=== PATIENT | male | born 1960 | race Two or more races ===

== ENCOUNTER 2019-07-25 18:22 | Emergency (ER) | payer OTHER ==
[~2019-07-25] VITALS: Ht 157.5 cm; Wt 59.0 kg
--- OUTSIDE RECORDS SUMMARY | ~2019-07-25 | XMS | Encounter Summary ---
Demographics + + + | Address | [address] | | | [place] [address] | + + + | Home Phone | | + + + | Preferred Language | Unknown | + + + | Marital Status | Single | + + + | Christianity Affiliation | Unknown | + + + | Race | Unknown | + + + | Ethnic Group | Unknown | + + + Author + + + | Author | [facility] | | | and [place] | + + + | Organization | [facility] | | | and [place] | + + + | Address | Unknown | + + + | Phone | Unavailable | + + + Support + + +---------+ + | Name | Relationship | Address | Phone | + + +---------+ + | Mayur Walker | ECON | Unknown | | + + +---------+ + Care Team Providers + +------+ + | Care Broom Worker Name | Role | Phone | + +------+ + | Lore Park PA-C | PCP | | + +------+ + Reason for Referral Diagnostic/Screening (Routine) +--------+--------+ + + + + | Status | Reason | Specialty | Diagnoses / | Referred By | Referred To | | | | | Procedures | Contact | Contact | +--------+--------+ + + + + | Closed | | Radiology | Diagnoses | | [facility] | | | | | Chronic | [place], | Ultrasound | | | | | hepatitis C | [place], | [address] | | | | | without | [facility] SPECIALIST [address] | [place], | | | | | hepatic coma | [address] [place] | [place] | | | | | (HCC) | [address] [place] | [address] | | | | | Dementia | [place] | Phone: | | | | | associated | [address] | [phone] | | | | | with | Phone: | Fax: | | | | | alcoholism | [phone] | [phone] | | | | | without | Fax: | | | | | | behavioral | [phone] | | | | | | disturbance | | | | | | | ([facility]) | | | | | | | Procedures | | | | | | | US Abdomen | | | | | | | Limited US, | | | | | | | ABDOMEN | | | | | | | LIMITED | | | +--------+--------+ + + + + Reason for Visit +--------+ + | Reason | Comments | +--------+ + | Other | Hep C | +--------+ + Evaluate & Treat (Routine) +--------+--------+ + + + + | Status | Reason | Specialty | Diagnoses / | Referred By | Referred To | | | | | Procedures | Contact | Contact | +--------+--------+ + + + + | Closed | | Gastroenterol | Diagnoses | Park, | Yaakovi, | | | | ogy | Chronic | Lore | Lamberto Moreno MD | | | | | viral | DARY Hardy | [address], | | | | | hepatitis C | [address] | | | | | (HCC) | St | [place], | | | | | Procedures | [place], | [place] [address] | | | | | Office Visit | [place] [address] | Phone: | | | | | | Phone: | [phone] | | | | | | [phone] | Fax: | | | | | | Fax: | [phone] | | | | | | [phone] | | +--------+--------+ + + + + Encounter Details +--------+---------+ + + + | Date | Type | Department | Care Team | Description | +--------+---------+ + + + | 06/05/ | Office | [facility] [place] | [facility], | Chronic hepatitis C | | 2016 | Visit | GASTROENTEROLOGY | [facility] [address] | without hepatic coma | | | | [address] [place] | [place], [address] | (HCC) (Primary Dx); | | | | [address] [place], [place] | [place], [place] | Dementia associated | | | | [address] | [address] | with alcoholism | | | | [phone] | | without behavioral | | | | | | disturbance (HCC) | +--------+---------+ + + + Social History + +-------+ +--------+------+ | Tobacco Use | Types | Packs/Day | Years | Date | | | | | Used | | + +-------+ +--------+------+ | Former Smoker | | | | | + +-------+ +--------+------+ + +---+---+---+ | Smokeless Tobacco: | | | | | Never Used | | | | + +---+---+---+ + + +---------+ + | Alcohol Use | Drinks/Week | oz/Week | Comments | + + +---------+ + | No | | | quit 2005 | + + +---------+ + + + + | Sex Assigned at | Date Recorded | | | | + + + | Not on file | | + + + + + + + | Job Start Date | Occupation | Industry | + + + + | Not on file | Not on file | Not on file | + + + + + + + + | Travel History | Travel Start | Travel End | + + + + + + | No recent travel history available. | + + documented as of this encounter Last Filed Vital Signs + + + + + | Vital Sign | Reading | Time Taken | Comments | + + + + + | Blood Pressure | 128/74 | 06/05/2017 8:56 AM | | | | | PST | | + + + + + | Pulse | 74 | 06/05/2017 8:56 AM | | | | | PST | | + + + + + | Temperature | 36.5 C (97.7 F) | 06/05/2017 8:56 AM | | | | | PST | | + + + + + | Respiratory Rate | 14 | 06/05/2017 8:56 AM | | | | | PST | | + + + + + | Oxygen Saturation | 96% | 06/05/2017 8:56 AM | | | | | PST | | + + + + + | Inhaled Oxygen | - | - | | | Concentration | | | | + + + + + | Weight | 61.2 kg (134 lb 14.7 | 06/05/2017 8:56 AM | | | | oz) | PST | | + + + + + | Height | 158.8 cm (5' 2.5") | 06/05/2017 8:56 AM | | | | | PST | | + + + + + | Body Mass Index | 24.28 | 06/05/2017 8:56 AM | | | | | PST | | + + + + + documented in this encounter Patient Instructions Patient Instructions Shea Pompa ARNP - 06/05/2017 12:27 PM PST Understanding Hepatitis C (HCV) Hepatitis means inflammation of the liver. There are many kinds of hepatitis. Some can be s pread. Others are not. Hepatitis C virus (HCV) can be spread to others. It can lead to lifel shelly liver disease. This includes chronic hepatitis, cirrhosis, liver failure, and liver canc er. Symptoms of hepatitis C Most people notice no problems until they develop liver disease years later. Symptoms inclu de the following: Flulike problems (fatigue, nausea, vomiting, diarrhea, and sore muscles and joints) Tenderness in the upper right abdomen Jaundice (yellowing skin) Swelling in the belly Itching Dark urine How HCV spreads HCV spreads through exposure to an infected person s blood. This is most likely to happen if: You used an infected needle (IV drug needles, tattoos, acupuncture needles, and body pie rcing) You had a needlestick injury in the hospital You shared personal care items such as razors You had sex without a condom with an infected person (a less common cause) You had a blood transfusion several years ago (blood is now screened for HCV) Many people do not know how they were exposed to HCV. Prevent the spread No vaccine can prevent the spread of HCV and hepatitis C. It s up to you to keep others s afe. Do: Cover all skin breaks and sores yourself. If you need help, the person treating you shou ld wear latex gloves. Use condoms during sex. Don t: Don t donate blood, plasma, body organs, other body tissue, or sperm. Don t share needles. Don t share razors, toothbrushes, manicure tools, or other personal items. Date Last Reviewed: 01/28/[id number] [employer]. [address] [place] [address], [place] [id number]. All righ ts reserved. This information is not intended as a substitute for professional medical care. Always follow your healthcare professional's instructions. documented in this encounter Progress Notes Shea Pompa ARNP - 06/05/2017 8:30 AM PSTFormatting of this note might be differe nt from the original. PATIENT NAME: Lewis Galvez : 1960: AGE: 57 y.o. REFERRED BY: Lore Park PRIMARY CARE: Lore Park PA-C CHIEF COMPLAINT: Lewis Galvez is a 57 y.o. male referred by Lore Park for evaluation and rod tment of HCV. HISTORY OF PRESENT ILLNESS: Patient is here today with caregiver. He has a history of alcohol-induced dementia. He wa s hospitalized in inpatient facility for approximately 10 years. He was released to a skilled nursing. When skilled nursing closed, he was placed and independent housing with a regular care gi asmita. He and caregiver both report that he has done well with this arrangement. He is compl iant with all current medications. He was initially diagnosed with HCV over 12 years ago when he was homeless in [place]. Like ly cause of infection of HCV is history of IV drug use. Has never been treated for HCV in the past. He does not think he has had a liver biopsy in the past. Last drank alcohol: 12 years. Last smoked marijuana: 12 years. Last used illegal drugs: about 14 years ago. There are no known risk factors for NAFLD. There is no known personal or family history of autoimmune diseases. Denies ascites, jaundice, hematemesis, peripheral edema, sleep changes, or confusion. 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 Allergic rhinitis 04/21/2012 Overview: Dx name changed by system update 04/20/2017 Chronic hepatitis C virus infection (HCC) 08/21/2008 Overview: Dx name changed by system update 04/20/2017 Essential hypertension, benign 09/23/2008 Lumbago 12/29/2014 Overview: Seen in the emergency room on 12/11/2014 Osteoarthrosis 10/05/2007 Overview: IMO Problem List Replacement - 2017_Regulatory_1 Other and unspecified hyperlipidemia 10/28/2012 Other atopic dermatitis and related conditions 12/08/2011 Past Surgical History: Procedure Laterality Date EYE SURGERY Family History Problem Relation Age of Onset Family history unknown: Yes Social History Social History Marital status: Single Spouse name: N/A Number of children: N/A Years of education: N/A Occupational History Not on file. Social History Main Topics Smoking status: Former Smoker Smokeless tobacco: Never Used Alcohol use No Comment: quit 2004 Drug use: No Comment: quit Sexual activity: Not on file Other Topics Concern Not on file Social History Narrative No narrative on file Review Of Systems: Constitutional:Denies any fevers, chills, or unintentional weight loss. Eyes:Denies using glaucoma eye drops. Denies dry, burning, painful eyes Respiratory:Denies shortness of breath, cough or wheezing. Gastrointestinal:Denies constipation, diarrhea, bloody or black stools, hematemesis, nausea or vomiting, hemorrhoids, heartburn, abdominal pain, or dysphagia Skin: Complains of skin rash. Neurological: Complains of memory difficulties. Denies numbness or tingling, paralysis, mu scle weakness, seizures, or frequent bothersome headaches. ENT: Complains of use of dentures. Denies hearing loss, use of hearing aids, ringing or bu zzing in ears, constantly runny nose, nasal obstruction, hayfever, or hoarseness for greater than one month. Cardiovascular:Denies chest pain, palpitations, or swelling to legs :Denies painful urination, urine incontinence, waking up on average more than once per ni ght to urinate, bloody urine, or impotence Musculoskeletal: Complains of painful back and joints. Denies swollen joints. Psychiatric:Denies depression and anxiety Endocrine:Denies enlarged thyroid Heme/lymph:Denies anemia or enlarged lymph glands. OBJECTIVE: PHYSICAL EXAM General: well developed, well nourished, in no acute distress, no muscle wasting noted Head: normocephalic and atraumatic Eyes: Sclera clear Mouth: MMM Lungs: Clear to auscultate bilaterally and throughout Heart: regular rate and rhythm Abdomen: Soft, non tender, non distended, bowel tones positive times 4 quadrants, negative Neena y's sign, negative rebound tenderness, no guarding, no hepatosplenomegaly palpated. Msk: symmetrical with no deformity, with normal posture and gait, normal strength. Extremities: no clubbing, cyanosis, edema, or deformity noted Neurologic: no focal deficits, cranial nerves II-XII grossly intact, negative for asterixis Skin: intact without lesions or rashes. Negative for spider angioma Psych: alert and cooperative; normal mood and affect; normal attention span and concentration, Abstract on 06/01/2017 Component Date Value Ref Range Status HCV Quantitative Log 05/03/2017 6.6 Final HCV Quantitative 05/03/2017 [id number] Final HCV Genotype 05/03/2017 1a Final PROTEIN (CALC) 05/03/2017 7 Final ALBUMIN 05/03/2017 4.2 g/dL Final BILIRUBIN TOTAL 05/03/2017 0.3 mg/dL Final Bilirubin Direct 05/03/2017 <0.2 0 - 0.3 Final ALK PHOS 05/03/2017 106 40 - 129 U/L Final AST 05/03/2017 20 0 - 40 U/L Final ALT 05/03/2017 23 0 - 41 U/L Final WBC, External 05/03/2017 8.7 3.8 - 11 Final HGB, External 05/03/2017 14.6 13.2 - 17 Final HCT, External 05/03/2017 42.1 39 - 50 Final PLT, External 05/03/2017 282 150 - 400 Final Neutrophils %, External 05/03/2017 74.8 40 - 75 Final Lymphocytes %, External 05/03/2017 17.2 15 - 48 Final Monocytes %, External 05/03/2017 5.8 0 - 12 Final Eosinophils %, External 05/03/2017 0.8 0 - 7 Final Neutrophils, Absolute, External 05/03/2017 6.5 1.9 - 7.4 Final Lymphocytes, Absolute, External 05/03/2017 1.5 1 - 3.9 Final Monocytes, Absolute, External 05/03/2017 0.5 0 - 0.8 Final Eosinophils, Absolute 05/03/2017 0.1* 0.5 Final Basophils, Absolute 05/03/2017 0.1 0 - 0.1 Final RBC, External 05/03/2017 4.57 4.2 - 5.7 Final MCV, External 05/03/2017 92 80 - 100 Final RDW, External 05/03/2017 13.1 11 - 15.5 Final MCH 05/03/2017 31.9 26.0 - 33.0 pg Final MCHC 05/03/2017 34.6 31.0 - 37.0 % Final Basophils % 05/03/2017 1.4 0 - 2 Final FECAL OCC BLD IMMUNO 11/17/2016 Negative Final ASSESSMENT: 1. Chronic hepatitis C without hepatic coma (HCC) Alpha Fetoprotein, Tumor Marker [id number], Total TOREY Screen, Qual CBC with Differential Ceruloplasmin Comprehensive Metabolic Panel Ferritin Hepatitis A IGG.IGM Hepatitis B Core Ab, IgM Hepatitis B Surface Ab Hepatitis B Surface Ag Protime INR Iron and Transferrin HIV 1 and 2 Ab, Reflex Genotype 1A 2. 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 Will order laboratory test to determin e current fibrosis score. This in combination with APRI will help determine a fibrosis scor e to determine if patient would be an appropriate candidate for hepatitis C treatment. Ordered labs to determine if additional liver pathology present. [facility]. Ordered abdominal ultrasound. Will call to help get scheduled once it is approved by [facility]. Ultrasound to be done at [facility] in [place]. Vaccination: If it has not been done, recommend patient is vaccinated for both Hepatitis A and Hepatitis B. Transmission: Discussed following infection control guidelines. Inform tattoo parlors and [facility]alt[facility] providers of HCV infection. Avoid sharing personal items that might have blood on them, such as razors, toothbrushes, and nail clippers.Despite low risk of transmission throu gh routine sexual contact, recommend safe sex practices, especially if multiple sexual partn ers. Substance use/abuse: Patient was educated on the importance of avoiding all alcohol and mar ijuana. Cannot treat HCV unless patient has been sober from alcohol, marijuana, and all othe r illegal drugs. Contraindications to HCV treatment: Absolute contraindications to HCV treatment include: 1. Short life expectancy.severe co morbidities (less than 10 years). 2. Known advanced cirrhosis with clinical decompensation (e.g. Ascites, encephalopathy, va riceal bleeding or SBP) 3. or inability to reliably use control. 4. Severe cardiac disease. Will call with results of labs and ultrasound. If all are unremarkable, we'll then refer t o GI pharmacist for hepatitis C treatment. Patient is to call with any question or concerns. Any fevers, chills, chest pain, SOB or other serious symptoms patient is to call the offic e or go to ER. Cc: Lore Park PA-C This note was dictated using voice recognition software. Please contact me if there are an y questions regarding its content. Electronically signed by MAR Panda at 01/2017 12:27 PM PSTdocumented in this encounter Plan of Treatment + +---------+--------+ + + | Name | Type | Priori | Associated Diagnoses | Order Schedule | | | | ty | | | + +---------+--------+ + + | Alpha Fetoprotein, | Lab | Routin | Chronic hepatitis | Expected: | | Tumor Marker | | e | C without hepatic | 06/05/2017, Expires: | | | | | coma (HCC) | 10/03/2017 | + +---------+--------+ + + | Fgnaq-5-[id number], | Lab | Routin | Chronic hepatitis | Expected: | | Total | | e | C without hepatic | 06/05/2017, Expires: | | | | | coma (HCC) | 10/03/2017 | + +---------+--------+ + + | TOREY Screen, Qual | Lab | Routin | Chronic hepatitis | Expected: | | | | e | C without hepatic | 06/05/2017, Expires: | | | | | coma (HCC) | 09/03/2017 | + +---------+--------+ + + | CBC with | Lab | Routin | Chronic hepatitis | 1 Occurrences | | Differential | | e | C without hepatic | starting 06/05/2017 | | | | | coma (HCC) | until 10/03/2017 | + +---------+--------+ + + | Ceruloplasmin | Lab | Routin | Chronic hepatitis | Expected: | | | | e | C without hepatic | 06/05/2017, Expires: | | | | | coma (HCC) | 10/03/2017 | + +---------+--------+ + + | Comprehensive | Lab | Routin | Chronic hepatitis | Expected: | | Metabolic Panel | | e | C without hepatic | 06/05/2017, Expires: | | | | | coma (HCC) | 10/03/2017 | + +---------+--------+ + + | Ferritin | Lab | Routin | Chronic hepatitis | Expected: | | | | e | C without hepatic | 06/05/2017, Expires: | | | | | coma (HCC) | 10/03/2017 | + +---------+--------+ + + | Hepatitis A IGG.IGM | Lab | Routin | Chronic hepatitis | Expected: | | | | e | C without hepatic | 06/05/2017, Expires: | | | | | coma (HCC) | 10/03/2017 | + +---------+--------+ + + | Hepatitis B Core Ab, | Lab | Routin | Chronic hepatitis | Expected: | | IgM | | e | C without hepatic | 06/05/2017, Expires: | | | | | coma (HCC) | 10/03/2017 | + +---------+--------+ + + | Hepatitis B Surface | Lab | Routin | Chronic hepatitis | Expected: | | Ab | | e | C without hepatic | 06/05/2017, Expires: | | | | | coma (HCC) | 10/03/2017 | + +---------+--------+ + + | Hepatitis B Surface | Lab | Routin | Chronic hepatitis | Expected: | | Ag | | e | C without hepatic | 06/05/2017, Expires: | | | | | coma (HCC) | 10/03/2017 | + +---------+--------+ + + | Protime INR | Lab | Routin | Chronic hepatitis | Expected: | | | | e | C without hepatic | 06/05/2017, Expires: | | | | | coma (HCC) | 10/03/2017 | + +---------+--------+ + + | Iron and Transferrin | Lab | Routin | Chronic hepatitis | Expected: | | | | e | C without hepatic | 06/05/2017, Expires: | | | | | coma (HCC) | 10/03/2017 | + +---------+--------+ + + | HIV 1 and 2 Ab, | Lab | Routin | Chronic hepatitis | 1 Occurrences | | Reflex | | e | C without hepatic | starting 06/05/2017 | | | | | coma (HCC) | until 06/05/2018 | + +---------+--------+ + + | US Abdomen Limited | Imaging | Routin | Chronic hepatitis | Expected: | | | | e | C without hepatic | 06/12/2017, Expires: | | | | | coma (HCC) Dementia | 10/03/2017 | | | | | associated with | | | | | | alcoholism without | | | | | | behavioral | | | | | | disturbance (HCC) | | + +---------+--------+ + + documented as of this encounter Procedures + +--------+ + + + | Procedure Name | Priori | Date/Time | Associated Diagnosis | Comments | | | ty | | | | + +--------+ + + + | IMAGING REPORT - | | 06/14/2017 | | Results for this | | EXTERNAL SCAN | | 12:00 AM | | procedure are in the | | | | PST | | results section. | + +--------+ + + + | LABS - EXTERNAL SCAN | | 06/14/2017 | | Results for this | | | | 12:00 AM | | procedure are in the | | | | PST | | results section. | + +--------+ + + + documented in this encounter Results LABS - EXTERNAL SCAN (06/14/2017 12:00 AM PST) + + + | Narrative | Performed At | + + + | Ordered by an | | | unspecified provider. | | + + + IMAGING REPORT - EXTERNAL SCAN (06/14/2017 12:00 AM PST) + + + | Narrative | Performed At | + + + | Ordered by an | | | unspecified provider. 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
--- OUTSIDE RECORDS SUMMARY | ~2019-07-25 | XMS | Encounter Summary ---
Demographics + + + | Address | [address] | | | [place] [address] | + + + | Home Phone | | + + + | Preferred Language | Unknown | + + + | Marital Status | Single | + + + | Taoist Affiliation | Unknown | + + + | Race | Unknown | + + + | Ethnic Group | Unknown | + + + Author + + + | Author | [facility] | | | and [place] | + + + | Organization | [facility] | | | [...] Team Providers + +------+ + | Care Wafer Cleaner Name | Role | Phone | + +------+ + | Lore Park PA-C | PCP | | + +------+ + Reason for Visit +---------+ + | Reason | Comments | +---------+ + | Results | | +---------+ + Encounter Details +--------+ + + + + | Date | Type | Department | Care Team | Description | +--------+ + + + + | 08/03/ | Telephone | [facility] | [place], | Results | | 2018 | | GASTROENTEROLOGY | [facility] [address] | | | | | [address] [place] | [place], [address] | | | | | [address] [place], [place] | [place], [place] | | | | | [address] | [address] | | | | | [phone] | | | +--------+ + + + + Social History + +-------+ [...] + + documented as of this encounter Plan of Treatment Not on filedocumented as of this encounter Visit Diagnoses Not on filedocumented in this encounter"
--- OUTSIDE RECORDS SUMMARY | ~2019-07-25 | XMS | Encounter Summary ---
Demographics + + + | Address | [address] | | | [place] [address] | + + + | Home Phone | | + + + | Preferred Language | Unknown | + + + | Marital Status | Single | + + + | Catholic Affiliation | Unknown | + + + | Race | Unknown | + + + | Ethnic Group | Unknown | + + + Author + + + | Author | [facility] | | | and [place] | + + + | Organization | [facility] | | | and [...] Team Providers + +------+ + | Care Airplane Engineer Name | Role | Phone | + +------+ + | Lore Park PA-C | PCP | | + +------+ + Reason for Visit Evaluate & Treat (Routine) +--------+--------+ + + + + | Status | Reason | Specialty | Diagnoses / | Referred By | Referred To | | | | | Procedures | Contact | Contact | +--------+--------+ + + + + | Closed | | Infusion | Diagnoses | | Mohl, | | | | Therapy | Chronic | [place], | Micky W, | | | | | hepatitis C | Shea, | PharmD [address] | | | | | without | INSTALLATION SPECIALIST [address] | | | | | hepatic coma | [place], [place] | [place], | | | | | (HCC) | [address] [place] | [place] [address] | | | | | | [place], [place] | Phone: | | | | | | [address] | [phone] | | | | | | Phone: | Fax: | | | | | | [phone] | [phone] | | | | | | Fax: | | | | | | | [phone] | | +--------+--------+ + + + + Encounter Details +--------+ + + + + | Date | Type | Department | Care Team | Description | +--------+ + + + + | 08/08/ | Hospital | [facility] | [facility], | Chronic hepatitis C | | 2018 | Encounter | MED CTR OP INFUSION | MAR Valdivia [address] | without hepatic coma | | | | [address] [place] | [place] [place] [address] | (HCC) | | | | [place], [place] | [place], [place] | | | | | [address] | [address] | | | | | [phone] | | | | | | | Micky Joseph, | | | | | | PharmD [address] | | | | | | ST [place], [place] | | | | | | [address] | | | | | | | | +--------+ + + + [...] + + + | Blood Pressure | 137/73 | 08/08/2017 9:44 AM | | | | | PST | | + + + + + | Pulse | 79 | 08/08/2017 9:44 AM | | | | | PST | | + + + + + | Temperature | 36.5 C (97.7 F) | 08/08/2017 9:44 AM | | | | | PST | | + + + + + | Respiratory Rate | 18 | 08/08/2017 9:44 AM | | | | | PST | | + + + + + | Oxygen Saturation | 97% | 08/08/2017 9:44 AM | | | | | PST | | + + + + + | Inhaled Oxygen | - | - | | | Concentration | | | | + + + + + | Weight | - | - | | + + + + + | Height | - | - | | + + + + + | Body Mass Index | - | - | | + + + + + documented in this encounter Discharge Instructions Instructions Micky Joseph, PharmDarrell - 08/08/2017I will send off prescription for Mavyret 8 weeks of therapy. I will begin working on the prior authorization for the medication and on ce that is approved we can start therapy. If you have any questions please call the clinic at [phone]. Micky Joseph, Dionne 08/08/2017 10:12 AttachmentsThe following attachments cannot be sent through Care Everywhere.Hepatitis C (HC V), Treating (Yoruba)documented in this encounter Medications at Time of Discharge + + + +---------+ + + | Medication | Sig | Dispensed | Refills | Start | End Date | | | | | | Date | | + + + +---------+ + + | acetaminophen | Take 500 mg by mouth | | 0 | 11/23/19 | | | (TYLENOL) 500 mg | every 6 hours as | | | 17 | | | tablet | needed. | | | | | + + + +---------+ + + | chlorpheniramine | Take 4 mg by mouth 2 | | 0 | 11/23/19 | | | (CHLOR-TRIMETON) 4 | times daily. | | | 17 | | | MG tablet | | | | | | + + + +---------+ + + | Cholecalciferol | Take 1 capsule by | | 0 | 11/23/19 | | | (VITAMIN D-3) 5000 | mouth Daily. | | | 17 | | | units CAPS | | | | | | + + + +---------+ + + | cyclobenzaprine | Take 5 mg by mouth | | 0 | | | | (FLEXERIL) 5 MG | Twice daily as | | | | | | tablet | needed for Muscle | | | | | | | spasms. | | | | | + + + +---------+ + + | fluticasone | 1 spray by Nasal | | 0 | 11/18/19 | | | (FLONASE) 50 | route Daily. | | | 17 | | | mcg/nasal spray | | | | | | + + + +---------+ + + | ibuprofen (ADVIL, | Take 1 tablet by | | 0 | 03/27/20 | | | MOTRIN) 200 mg | mouth every 6 hours | | | 17 | | | tablet | as needed. | | | | | + + + +---------+ + + | | Take 1 tablet by | | 0 | 03/05/20 | | | lisinopril-hydrochlo | mouth Daily. | | | 17 | | | rothiazide | | | | | | | (PRINZIDE,ZESTORETIC | | | | | | | ) 10-12.5 MG per | | | | | | | tablet | | | | | | + + + +---------+ + + | miconazole | Apply 1 Application | | 0 | 11/23/19 | | | (MICATIN) 2% powder | topically as needed. | | | 17 | | + + + +---------+ + + | simethicone | Take 80 mg by mouth | | 0 | 11/23/19 | | | (MYLICON) 80 mg | every 6 hours as | | | 17 | | | chewable tablet | needed. | | | | | + + + +---------+ + + documented as of this encounter Progress Notes Micky Joseph, PharmDarrell - 08/08/2017 9:51 AM PST [facility] New Patient Visit: Hepatitis C Provider: Micky Joseph, HardikD Visit Date: 08/08/2017 Patient: Lewis Galvez : 1960 CSN: [id number] Lewis Galvez is a 57 y.o. male who has been [facility] by MAR Panda for Hepatitis C medication treatment. ASSESSMENT Lewis has no prior history of Hepatitis C treatment. Patient genotype is 1a. Lewis's AP RI=0.34 and Ultrasound abdomen showed no definent abnormalities, and his ICD-10 diagnosis co de is B18.2. Lewis does not have a history of depression, anxiety, emotional liability, ir ritability or insomnia. Patient is currently under the care of Shea Pompa. There hav e been no hospital admissions for ascites, hepatic encephalopathy, jaundice, or gastrointest inal bleed. Lewis does not have untreated hepatocellular carcinoma and does not have deco mpensated cirrhosis (Zynhr-Ryooqxkb-Tdte class B or C, typically with ascites, encephalopath y, coagulopathy, or hyperbilirubinemia). Lewis informed me that Hepatitis C most likely occurred 12 years ago due to history of in travenous drug use. This risk is no longer a contributing factor to future contamination wit h the virus. Medications were reviewed for drug interactions. No significant interactions were identifie d. CAGE questionnaire reveals Lewis has no indication of having alcohol problems. Patient has a history of alcohol-induced dementia. He is at his appointment today with his caregiver (Mayur). Lewis verbalizes that he understands what I explained to him about hep atitis C treatment but openly told me that he forgets and needs help remembering things. He requested that when I contact him to call his caregiver so that he can have things explaine d multiple times if needed. His is currently living in a independent housing with regular v isit from his manager critical care and has done well. He reports being compliant with all of his curr ent medications and utilizes a pill box that he sets up to help him remember to take his med ication. Refill history from [facility] data shows consistent filling of his ma intenance medication for last three month. Last drank alcohol: 12 years. Last smoked marijuana: 12 years. Last used illegal drugs: about 14 years ago. Plan Hepatitis C: 1. Initiate treatment with Mavyret 100mg/40mg take three tablets by mouth daily with food f or 8 weeks. Patient prefers to use [facility] specialty pharmacy and an electronic prescription has been sent. Lewis has been advised that we will call him once insurance coverage of th e medication has been confirmed. 2. Exposure of Hepatitis C occurred greater than 6 months ago and does not require retestin g for HCV RNA. 3. Lewis does not have coinfection with HIV. 4. Lewis does not have immunity to Hepatitis A and does not have immunity to Hepatitis B. Education was provided regarding increased risk of accelerated hepatic fibrosis and liver failure with Hepatitis A/B coinfection 5.Lewis is core antibody negative and surface antigen negative for Hepatitis B; therefore further monitoring for hepatitis B infection is unnecessary at this time. 6. Patient does not currently consume alcohol. Risks of further liver toxicity from consumi ng alcohol, even moderate amounts (50 g/day or more), have been discussed and patient agrees to abstain from drinking alcohol during Hepatitis C treatment. 7. Patient is not currently on any hepatotoxic medications. Lewis is agreeable to calling us prior to starting any new prescription or fyjz-dgn-achsqlq medications, herbals, or supp lements. 8. Lewis rarely uses acetaminophen-containing products. Advised abstaining from use of th brandon products and provided with a list of OTC products that contain acetaminophen. 9. Lewis has been counseled to report any medications used for heartburn such as PPIs or H-2 blockers. 10. Lewis has been counseled to avoid NSAIDS and ASA containing products to prevent wors ening of portal HTN and GI bleeding. Disease state and medication education was provided to Lewis including avoiding donation of blood, tissue or semen, never sharing razors, toothbrushes, nail clippers or other hygien e products that could be contaminated with blood to reduce the transmission of Hepatitis C t o other individuals, the low risk of transmitting HCV sexually to their monogamous sex partn er, sharing needles and equipment used to prepare illicit drugs is associated with increased risk or transmitting and kenia HCV, and that transmission of HCV to others in the [facility] is rare. Lewis has been counseled that reinfection with HCV is possible and prevent ion strategies should be used fpc if ongoing risk exists. Lewis has been counseled t hat the risk of transmitting HCV sexually to their partner increases with multiple sex partn ers, sex during menses, those co-infected with HIV, unprotected anal intercourse, use of rec reational drugs during sex, sex with STDs, group sex, blood exposure and shared sex toys. Subjective/Objective Reason for Visit: Initiation of Hepatitis C medication treatment. Hepatitis C was diagnosed prior to referral to our clinic and confirmed with a positive HCV RNA test and positive anti-HCV antibody test. Patient does not have a history of liver bingham splant. No specialty comments available. 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 Allergic rhinitis 04/21/2012 Chronic hepatitis C virus infection 08/21/2008 Essential hypertension, benign 09/23/2008 Lumbago 12/29/2014 Osteoarthrosis 10/05/2007 Other and unspecified hyperlipidemia 10/28/2012 Other atopic dermatitis and related conditions 12/08/2011 Medical co-morbidities: Patient Active Problem List Diagnosis Absolute anemia Alcohol-induced persisting dementia Allergic rhinitis Chronic hepatitis C virus infection Essential hypertension, benign Lumbago Osteoarthrosis Other and unspecified hyperlipidemia Other atopic dermatitis and related conditions A complete verbal review of systems was conducted and patient reports no positive findings. Patient denies dark urine, jaundice, flu-like symptoms, pale stool, nausea, abdominal pain, dyspepsia, fatigue, arthralgia, neuropathy, nephropathy, glomerulonephritis, livedo reticul hakeem, lichen planus, cold agglutinin disease, paresthesia, myalgia, pruritus, sicca syndrome , spider nevi, distended abdominal veins, Fausto's nails, palmar erythema, gynecomastia, jaun pheral edema and ascites. LABORATORY FINDINGS Lab Results Component Value Date ALT 23 05/03/2017 AST 20 05/03/2017 ALKPHOS 106 05/03/2017 BILITOT 0.3 05/03/2017 HCTEX 42.1 05/03/2017 HGBEX 14.6 05/03/2017 PLTEX 282 05/03/2017 CrCl cannot be calculated (No order found.). CrCl cannot be calculated (No order found.). No results found for this or any previous visit. HCV Quantitative Date Value Ref Range Status 05/03/2017 4,224,825 Final Estimated CrCl:~82 ml/min based on AjBW and last Scr. Vaccine history: Immunization History Administered Date(s) Administered HEP A, 3 DOSE (PED/ADOL) 04/08/2008, 12/23/2009, 10/27/2011 HEP B, 3 DOSE (ADULT) 04/08/2008, 05/08/2008, 12/23/2009 INFLUENZA, UNSPECIFIED FORMULATION 06/13/1993, 05/05/2011, 05/18/2015, 05/03/2017 IPV, 4 DOSE (PED/ADULT) 06/29/2009 TDAP, (ADOL/ADULT) 10/28/2012 Vitals: BP 137/73 | Pulse 79 | Temp 36.5 C (97.7 F) (Oral) | Resp 18 | SpO2 97% Medications: Outpatient Medications acetaminophen (TYLENOL) 500 mg tablet Take 500 mg by mouth every 6 hours as needed. chlorpheniramine (CHLOR-TRIMETON) 4 MG tablet Take 4 mg by mouth 2 times daily. Cholecalciferol (VITAMIN D-3) 5000 units CAPS Take 1 capsule by mouth Daily. fluticasone (FLONASE) 50 mcg/nasal spray 1 spray by Nasal route Daily. ibuprofen (ADVIL, MOTRIN) 200 mg tablet Take 1 tablet by mouth every 6 hours as needed. lisinopril-hydrochlorothiazide (PRINZIDE,ZESTORETIC) 10-12.5 MG per tablet Take 1 tablet b y mouth Daily. miconazole (MICATIN) 2% powder Apply 1 Application topically as needed. simethicone (MYLICON) 80 mg chewable tablet Take 80 mg by mouth every 6 hours as needed. I spent 30 minutes face to face with the patient, with over 50% of time spent in education of Lewis's medications, the risks and benefits of proceeding as above, and answering quest ions regarding treatment and outcomes. Micky Joseph PharmD DATE/TIME: 08/08/2017 9:51 documented in this encounter Plan of Treatment Not on filedocumented as of this encounter Visit Diagnoses + + | Diagnosis | + + | Chronic hepatitis C without hepatic coma (HCC) | + + documented in this encounter"
--- OUTSIDE RECORDS SUMMARY | ~2019-07-25 | XMS | Encounter Summary ---
Demographics + + + | Address | [address] | | | [place] [address] | + + + | Home Phone | | + + + | Preferred Language | Unknown | + + + | Marital Status | Single | + + + | Baptist Affiliation | Unknown | + + + | Race | Unknown | + + + | Ethnic Group | Unknown | + + + Author + + + | Author | [facility] | | | and [place] | + + + | Organization | [facility] | | | and [...] Team Providers + +------+ + | Care Interactive Graphic Designer Name | Role | Phone | + +------+ + | Lore Park PA-C | PCP | | + +------+ + Encounter Details +--------+ + + + + | Date | Type | Department | Care Team | Description | +--------+ + + + + | 07/31/ | Documentati | [facility] [place] | [facility], | | | 2018 | on | GASTROENTEROLOGY | MAR Valdivia [address] | | | | | [address] [place] | [place], [place] [address] | | | | | [address] [place], [place] | [place] | | | | | [address] | [id number] | | | | | [phone] | | | +--------+ + + + [...] documented as of this encounter Progress Notes Celine Mary CMA - 07/31/2017 2:00 PM PSTRouted referral to Micky Joseph in pharmacy . documented in thi s encounter Plan of Treatment Not on filedocumented as of this encounter Visit Diagnoses Not on filedocumented in this encounter"
--- OUTSIDE RECORDS SUMMARY | ~2019-07-25 | XMS | Encounter Summary ---
Demographics + + + | Address | [address] | | | [place] [address] | + + + | Home Phone | | + + + | Preferred Language | Unknown | + + + | Marital Status | Single | + + + | Moravian Affiliation | Unknown | + + + | Race | Unknown | + + + | Ethnic Group | Unknown | + + + Author + + + | Author | [facility] | | | and [place] | + + + | Organization | [facility] | | | [...] Team Providers + +------+ + | Care Dyeing Machine Feeder Name | Role | Phone | + +------+ + | Lore Park PA-C | PCP | | + +------+ + Reason for Visit + + + | Reason | Comments | + + + | Medication Prior | Sulma | | Authorization | | + + + Encounter Details +--------+ + + + + | Date | Type | Department | Care Team | Description | +--------+ + + + + | 09/10/ | Telephone | [facility] | [place], | Medication Prior | | 2018 | | MEDICINE [address] | Lore Hardy PA-C | Authorization | | | | Luiz Schneider | [address] | (Mavyret) | | | | [place] [address] | [place], [place] [address] | | | | | [phone] | [phone] | | | | | | | [...]
--- OUTSIDE RECORDS SUMMARY | ~2019-07-25 | XMS | Encounter Summary ---
Demographics + + + | Address | [address] | | | [place] [address] | + + + | Home Phone | | + + + | Preferred Language | Unknown | + + + | Marital Status | Single | + + + | Buddhism Affiliation | Unknown | + + + | Race | Unknown | + + + | Ethnic Group | Unknown | + + + Author + + + | Author | [facility] | | | and [place] | + + + | Organization | [facility] | | [...] Team Providers + +------+ + | Care Promotions Executive Producer Name | Role | Phone | + +------+ + | Lore Park PA-C | PCP | | + +------+ + Reason for Visit + + + | Reason | Comments | + + + | Medication | | | Management | | + + + Encounter Details +--------+ + + + + | Date | Type | Department | Care Team | Description | +--------+ + + + + | 04/10/ | Telephone | [facility] [place] | [place], | Medication | | 2018 | | GASTROENTEROLOGY | SheaMAR ledesma [address] | Management | | | | [address] [place] | [place], [place] [address] | | | | | [address] [place], [place] | [place], [place] | | | | | [address] | [address] | | | | | [phone] | | | +--------+ + + + [...]
--- OUTSIDE RECORDS SUMMARY | ~2019-07-25 | XMS | Encounter Summary ---
Demographics + + + | Address | [address] | | | [place] [address] | + + + | Home Phone | | + + + | Preferred Language | Unknown | + + + | Marital Status | Single | + + + | Zoroastrianism Affiliation | Unknown | + + + | Race | Unknown | + + + | Ethnic Group | Unknown | + + + Author + + + | Author | [facility] | | | and [place] | + + + | Organization | [facility] | | | [...] Team Providers + +------+ + | Care Clothes Drier Assembler Name | Role | Phone | + +------+ + | Lore Park PA-C | PCP | | + +------+ + Encounter Details +--------+ + + + + | Date | Type | Department | Care Team | Description | +--------+ + + + + | 08/14/ | Orders Only | [facility] | Micky Joseph, | Chronic hepatitis C | | 2018 | | [facility] | PharmD [address] | without hepatic coma | | | | [address] [place] | [address] [place], [place] | (HCC) (Primary Dx) | | | | [place] [address] | [address] | | | | | [phone] | | | +--------+ + + + [...] coma (HCC) - Primary | + + documented in this encounter"
--- OUTSIDE RECORDS SUMMARY | ~2019-07-25 | XMS | Encounter Summary ---
Demographics + + + | Address | [address] | | | [place] [address] | + + + | Home Phone | | + + + | Preferred Language | Unknown | + + + | Marital Status | Single | + + + | Christian Affiliation | Unknown | + + + | Race | Unknown | + + + | Ethnic Group | Unknown | + + + Author + + + | Author | [facility] | | | and [place] | + + + | Organization | [facility] | | | and [...] Team Providers + +------+ + | Care Telegraph Office Route Aide Name | Role | Phone | + [...] coma | | | | [address] [place] | [place], [place] | (HCC) (Primary Dx) | | | | [place] [address] | [address] | | | | | [phone] | | | +--------+ + + + [...]
--- OUTSIDE RECORDS SUMMARY | ~2019-07-25 | XMS | Encounter Summary ---
Demographics + + + | Address | [address] | | | [place] [address] | + + + | Home Phone | | + + + | Preferred Language | Unknown | + + + | Marital Status | Single | + + + | Scientologist Affiliation | Unknown | + + + | Race | Unknown | + + + | Ethnic Group | Unknown | + + + Author + + + | Author | [facility] | | | and [place] | + + + | Organization | [facility] | | | [...] Team Providers + +------+ + | Care Front Desk Worker Name | Role | Phone | + +------+ + | Lore Park PA-C | PCP | | + +------+ + Reason for Visit + + + | Reason | Comments | + + + | Referral | Sulma | + + + Encounter Details +--------+ + + + + | Date | Type | Department | Care Team | Description | +--------+ + + + + | 08/14/ | Documentati | [facility] | Yinka armijo O[place], | Referral (Sulma) | | 2018 | on | PHARMACY SPECIALTY | [facility] | | | | | [place] | Tech | | | | | [facility] | | | | | | [place], [place] | | | | | | [address] | | | | | | [phone] | | | +--------+ + + + [...] documented as of this encounter Progress Notes Lewis Claudio [place], Adjunct Instructor - 08/14/2017 1:16 PM PST The patient's insurance requires us to transfer the Mavyret prescription to their contracte d specialty pharmacy: [facility]. We have forwarded the prescription and all documentation we rec eived to this specialty pharmacy. Please contact them at [phone] with any questions. Electronically signed by: Sabra Pacheco [facility] Tech 08/14/2017 13:16 [address] [place] [address] (Toll Free: ) Website d ocumented in this encounter Plan of Treatment Not on filedocumented as of this encounter Visit Diagnoses Not on filedocumented in this encounter"
--- OUTSIDE RECORDS SUMMARY | ~2019-07-25 | XMS | Encounter Summary ---
Demographics + + + | Address | [address] | | | [place] [address] | + + + | Home Phone | | + + + | Preferred Language | Unknown | + + + | Marital Status | Single | + + + | Jewish Affiliation | Unknown | + + + | Race | Unknown | + + + | Ethnic Group | Unknown | + + + Author + + + | Author | [facility] | | | and [place] | + + + | Organization | [facility] | | | [...] Team Providers + +------+ + | Care Product/Industry Consultant Name | Role | Phone | + [...] | [address] [place] | [place], [address] [address] | | | | | [address] [place], [place] | [place], [place] | | | | | [address] | [address] | | | | | [phone] | | | +--------+ + + + [...]
--- OUTSIDE RECORDS SUMMARY | ~2019-07-25 | XMS | Encounter Summary ---
Demographics + + + | Address | [address] | | | [place] [address] | + + + | Home Phone | | + + + | Preferred Language | Unknown | + + + | Marital Status | Single | + + + | Pentecostalism Affiliation | Unknown | + + + | Race | Unknown | + + + | Ethnic Group | Unknown | + + + Author + + + | Author | [facility] | | | and [place] | + + + | Organization | [facility] | | [...] Team Providers + +------+ + | Care Rail Splitter Name | Role | Phone | + [...] | [address] [place] | [place], [place] [address] | | | | | [address] [place], [place] | [place], [place] | | | | | [address] | [address] | | | | | [phone] | | | +--------+ + + + [...]
--- OUTSIDE RECORDS SUMMARY | ~2019-07-25 | XMS | Encounter Summary ---
Demographics + + + | Address | [address] | | | [place] [address] | + + + | Home Phone | | + + + | Preferred Language | Unknown | + + + | Marital Status | Single | + + + | Jainism Affiliation | Unknown | + + + | Race | Unknown | + + + | Ethnic Group | Unknown | + + + Author + + + | Author | [facility] | | | and [place] | + + + | Organization | [facility] | | | [...] Team Providers + +------+ + | Care Crown Blocker Name | Role | Phone | + [...] | | | | | without | DEPUTY SHERIFF GENERALIST [address] | | | | | hepatic coma | [place] | [place], | | | | | (HCC) | [address] [place] | [place] [address] | | | | | | [place], [place] | Phone: | | | | | | [address] | [phone] | | | | | | Phone: | Fax: | | | | | | [phone] | [phone] | | | | | | Fax: | | | | | | | [phone] | | +--------+--------+ + + + + Encounter Details +--------+ + + + + | Date | Type | Department | Care Team | Description | +--------+ + + + + | 08/08/ | Hospital | [facility] | [facility], | Chronic hepatitis C | | 2018 | Encounter | MED CTR OP INFUSION | [facility] [address] | without hepatic coma | | | | [address] [place] | [place] [place] [address] | (HCC) | | | | [place], [place] | [place], [place] | | | | | [address] | [address] | | | | | [phone] | | | | | | | Micky Joseph, | | | | | | PharmD [address] | | | | | | [address] [place], [place] | | | | | | [address] | | | | | | | [...] any questions please call the clinic at [phone]. Micky Joseph, Dionne 08/08/2017 10:12 AttachmentsThe following attachments cannot be sent through Care Everywhere.Hepatitis C (HC V), Treating (Yi)documented in this encounter Medications at Time of [...] 08/08/2017 Patient: Lewis Galvez : 1960 CSN: [id number] Lewis Galvez is a 57 y.o. male who has been referred to the [facility] by MAR Panda [...] and does not have deco mpensated cirrhosis (Bbnbv-Uighegpb-Rdtd class B or C, typically with ascites, [...] housing with regular v isit from his healthcare architect and has done well. He reports being compliant with all of his curr ent medications and utilizes a pill box that he sets up to help him remember to take his med ication. Refill history from [facility] and [employer] data shows consistent filling of his ma intenance medication for last three month. Last drank alcohol: 12 years. Last smoked marijuana: 12 years. Last used illegal drugs: about 14 years ago. Plan Hepatitis C: 1. Initiate treatment with Mavyret 100mg/40mg take three tablets by mouth daily with food f or 8 weeks. Patient prefers to use [facility] specialty pharmacy and an electronic prescription [...] prior to starting any new prescription or gkot-yxg-twzayra medications, herbals, or supp lements. 8. Lewis [...] transmission of HCV to others in the [facility] is rare. Lewis has been counseled that reinfection with HCV is possible and prevent ion strategies should be used custodial if ongoing risk exists. Lewis has been [...]
--- OUTSIDE RECORDS SUMMARY | ~2019-07-25 | XMS | Clinical Summary ---
Demographics + + + | Address | [address] | | | [place] [address] | + + + | Home Phone | | + + + | Preferred Language | Unknown | + + + | Marital Status | Single | + + + | Mosque Affiliation | Unknown | + + + | Race | Unknown | + + + | Ethnic Group | Unknown | + + + Author + + + | Author | [facility] | | | and [place] | + + + | Organization | [facility] | | | [...] Team Providers + +------+ + | Care Devulcanizer Head Name | Role | Phone | + +------+ + | Lore Park PA-C | PCP | | + +------+ + Allergies No Known Allergies Medications + + + +---------+------+------+-------+ | Medication | Sig | Dispensed | Refills | Star | End | Statu | | | | | | t | Date | s | | | | | | Date | | | + + + +---------+------+------+-------+ | acetaminophen | Take 500 mg by mouth | | 0 | 04/2 | | Activ | | (TYLENOL) 500 mg | every 6 hours as | | | 6/20 | | e | | tablet | needed. | | | 17 | | | + + + +---------+------+------+-------+ | chlorpheniramine | Take 4 mg by mouth 2 | | 0 | 04/2 | | Activ | | (CHLOR-TRIMETON) 4 | times daily. | | | 20 | | e | | MG tablet | | | | 17 | | | + + + +---------+------+------+-------+ | Cholecalciferol | Take 1 capsule by | | 0 | 04/2 | | Activ | | (VITAMIN D-3) 5000 | mouth Daily. | | | 6/20 | | e | | units CAPS | | | | 17 | | | + + + +---------+------+------+-------+ | ibuprofen (ADVIL, | Take 1 tablet by | | 0 | 08/2 | | Activ | | MOTRIN) 200 mg | mouth every 6 hours | | | 20 | | e | | tablet | as needed. | | | 17 | | | + + + +---------+------+------+-------+ | fluticasone | 1 spray by Nasal | | 0 | 04/2 | | Activ | | (FLONASE) 50 | route Daily. | | | 20 | | e | | mcg/nasal spray | | | | 17 | | | + + + +---------+------+------+-------+ | | Take 1 tablet by | | 0 | 08/0 | | Activ | | lisinopril-hydrochlo | mouth Daily. | | | 02/15 | | e | | rothiazide | | | | 17 | | | | (PRINZIDE,ZESTORETIC | | | | | | | | ) 10-12.5 MG per | | | | | | | | tablet | | | | | | | + + + +---------+------+------+-------+ | miconazole | Apply 1 Application | | 0 | 04/2 | | Activ | | (MICATIN) 2% powder | topically as needed. | | | 20 | | e | | | | | | 17 | | | + + + +---------+------+------+-------+ | simethicone | Take 80 mg by mouth | | 0 | 04/2 | | Activ | | (MYLICON) 80 mg | every 6 hours as | | | 620 | | e | | chewable tablet | needed. | | | 17 | | | + + + +---------+------+------+-------+ | cyclobenzaprine | Take 5 mg by mouth | | 0 | | | Activ | | (FLEXERIL) 5 MG | Twice daily as | | | | | e | | tablet | needed for Muscle | | | | | | | | spasms. | | | | | | + + + +---------+------+------+-------+ Active Problems + + + | Problem | Noted Date | + + + | Absolute anemia | 05/03/2017 | + + + | Lumbago | 12/29/2014 | + + + + + | Overview: Overview: | | Seen in the emergency room on 12/11/2014 | + + + + + | Alcohol-induced persisting dementia | 10/28/2012 | + + + | Other and unspecified hyperlipidemia | 10/28/2012 | + + + | Allergic rhinitis | 04/21/2012 | + + + + + | Overview: Overview: | | Dx name changed by system update 04/20/2017 | + + + + + | Other atopic dermatitis and related conditions | 12/08/2011 | + + + | Essential hypertension, benign | 09/23/2008 | + + + | Chronic hepatitis C virus infection | 08/21/2008 | + + + + + | Overview: Overview: | | Dx name changed by system update 04/20/2017 | + + + + + | Osteoarthrosis | 10/05/2007 | + + + + + | Overview: Overview: | | IMO Problem List Replacement - [id number] | + + Immunizations + + + + | Name | Administration Dates | Next Due | + + + + | HEP A, 3 DOSE | 10/27/2011, 12/23/2009, 04/08/2008 | | | (PED/ADOL) | | | + + + + | HEP B, 3 DOSE | 12/23/2009, 05/08/2008, 04/08/2008 | | | (ADULT) | | | + + + + | INFLUENZA, | 05/03/2017, 05/18/2015, 05/05/2011, | | | UNSPECIFIED | 06/13/1993 | | | FORMULATION | | | + + + + | IPV, 4 DOSE | 06/29/2009 | | | (PED/ADULT) | | | + + + + | TDAP, (ADOL/ADULT) | 10/28/2012 | | + + + + Family History + +------+ + + | Relation | Name | Status | Comments | + +------+ + + | Father | | | | + +------+ + + | Mother | | | | + +------+ + + Social History + +-------+ +--------+------+ [...] recent travel history available. | + + Last Filed Vital Signs + + + [...] | | + + + + + Plan of Treatment + + + + + | Health Maintenance | Due Date | Last Done | Comments | + + + + + | Vaccine: | | | | | Pneumococcal 19-64 | 5 | | | | (1 of 1 - PPSV23) | | | | + + + + + | Vaccine: Zoster (1 | | | | | of 2) | 9 | | | + + + + + | Colorectal Cancer | | 11/17/2016 | | | Screening (FIT) | 8 | | | + + + + + | Vaccine: Influenza | | 05/03/2017, 05/03/2017, | | | (#1) | 9 | 05/18/2015, Additional history | | | | | exists | | + + + + + | Vaccine: | | 10/28/2012 | | | Dtap/Tdap/Td (2 - | 3 | | | | Td) | | | | + + + + + | Hepatitis C | Completed | 08/14/2017, 08/08/2017, | | | Screening | | 08/08/2017, Additional history | | | | | exists | | + + + + + Results Not on filefrom Last 3 Months Insurance + +--------+ +--------+ +---------+--------+ | Payer | Benefi | Subscriber | Effect | Phone | Address | Type | | | t Plan | ID | amaya | | | | | | / | | Dates | | | | | | Group | | | | | | + +--------+ +--------+ +---------+--------+ | [employer] | [employer] | [id number] | 05/22/ | [phone] | | Medica | | MEDICAID HMO | HEALTH | | 2017-P | 1 | | id | | | MD[place] | | resent | | | | | [place] | | | | | | + +--------+ +--------+ +---------+--------+ + +--------+ +--------+ + + | Guarantor Name | Accoun | Relation to | Date | Phone | Billing Address | | | t Type | Patient | of | | | | | | | | | | + +--------+ +--------+ + + | Lewis Galvez | Person | Self | [birth year] | [address] | | | al/Fam | | 1959 | [phone] | [place] [address] | | | lisset | | | 1 (Home) | | + +--------+ +--------+ + + Advance Directives + + + + + | Type | Date Recorded | Patient | Explanation | | | | Power Tool Repairer | | + + + + + | Power of | | | | | Granulator Tender | | | | + + + + + | Advance | | | | | Directive | | | | + + + + +
--- OUTSIDE RECORDS SUMMARY | ~2019-07-25 | XMS | Encounter Summary ---
Demographics + + + | Address | [address] | | | [place] [address] | + + + | Home Phone | | + + + | Preferred Language | Unknown | + + + | Marital Status | Single | + + + | Zoroastrianism Affiliation | Unknown | + + + | Race | Unknown | + + + | Ethnic Group | Unknown | + + + Author + + + | Author | [facility] | | | and [place] | + + + | Organization | [facility] | | | [...] Team Providers + +------+ + | Care Bag Patcher Name | Role | Phone | + +------+ + | Lore Park PA-C | PCP | | + +------+ + Reason for Referral Evaluate & Treat (Routine) +--------+--------+ + + [...] | | | | | without | SENIOR LEAD JAVA DEVELOPER [address] | | | | | hepatic coma | [place], [place] | [place], | | | | | (HCC) | [address] | [place] [address] | | | | | | [place], [place] | Phone: | | | | | | [address] | [phone] | | | | | | Phone: | Fax: | | | | | | [phone] | [phone] | | | | | | Fax: | | | | | | | [phone] | | +--------+--------+ + + + + Encounter Details +--------+ + + + + | Date | Type | Department | Care Team | Description | +--------+ + + + + | 07/19/ | Orders Only | [facility] [place] | [place], | Chronic hepatitis C | | 2017 | | GASTROENTEROLOGY | [facility] [address] | without hepatic coma | | | | [address] [place] | [place], [place] [address] | (HCC) (Primary Dx) | | | | [address] [place], [place] | [place], [place] | | | | | [address] | [address] | | | | | [phone] | | | +--------+ + + + [...] as of this encounter Plan of Treatment + + +--------+ + + | Name | Type | Priori | Associated Diagnoses | Order Schedule | | | | ty | | | + + +--------+ + + | * [facility]fusion | Outpatient | Routin | Chronic hepatitis | Ordered: 07/19/2017 | | PharmD - AMB | Referral | e | C without hepatic | | | Referral | | | coma (HCC) | | + + +--------+ + + documented as of this encounter Visit Diagnoses + + | Diagnosis | + + | Chronic hepatitis C without hepatic coma (HCC) - Primary | + + documented in this encounter"
--- OUTSIDE RECORDS SUMMARY | ~2019-07-25 | XMS | Encounter Summary ---
Demographics + + + | Address | [address] | | | [place] [address] | + + + | Home Phone | | + + + | Preferred Language | Unknown | + + + | Marital Status | Single | + + + | Episcopal Affiliation | Unknown | + + + | Race | Unknown | + + + | Ethnic Group | Unknown | + + + Author + + + | Author | [facility] | | | and [place] | + + + | Organization | [facility] | | [...] Team Providers + +------+ + | Care Assembler Seat Name | Role | Phone | + +------+ + | Lore Park PA-C | PCP | | + +------+ + Reason for Visit + + + | Reason | Comments | + + + | LABS | | + + + | Imaging Only | ultrasound | + + + Encounter Details +--------+ + + + + | Date | Type | Department | Care Team | Description | +--------+ + + + + | 06/07/ | Telephone | [facility] [place] | [facility], | LABS; Imaging Only | | 2017 | | GASTROENTEROLOGY | [facility] [address] | (ultrasound) | | | | [address] [place] | [place], [place] [address] | | | | | [address] [place], [place] | [place], [place] | | | | | [address] | [address] | | | | | [phone] | | | +--------+ + + + [...]
--- OUTSIDE RECORDS SUMMARY | ~2019-07-25 | XMS | Encounter Summary ---
Demographics + + + | Address | [address] | | | [place] [address] | + + + | Home Phone | | + + + | Preferred Language | Unknown | + + + | Marital Status | Single | + + + | Evangelical Affiliation | Unknown | + + + | Race | Unknown | + + + | Ethnic Group | Unknown | + + + Author + + + | Author | [facility] | | | and [place] | + + + | Organization | [facility] | | [...] Team Providers + +------+ + | Care Health Evaluator Name | Role | Phone | + +------+ + | Lore Park PA-C | PCP | | + +------+ + Encounter Details +--------+ + + + + | Date | Type | Department | Care Team | Description | +--------+ + + + + | 06/01/ | Abstract | [facility] [place] | [facility], | | | 2017 | | GASTROENTEROLOGY | [facility] [address] | | | | | [address] [place] | [place], [place] [address] | | | | | [address] [place], [place] | [place] | | | | | [address] | [id number] | | | | | [phone] | | | +--------+ + + + + Social History + +-------+ +--------+------+ | Tobacco Use | Types | Packs/Day | Years | Date | | | | | Used | | + +-------+ +--------+------+ | Former Smoker | | | | | + +-------+ +--------+------+ + + + | Sex Assigned at [...] Not on filedocumented as of this encounter Procedures + +--------+ + + + | Procedure Name | Priori | Date/Time | Associated Diagnosis | Comments | | | ty | | | | + +--------+ + + + | EXTERNAL LAB: CBC | Routin | 05/03/2017 | | Results for this | | | e | | | procedure are in the | | | | | | results section. | + +--------+ + + + | HEPATITIS C | Routin | 05/03/2017 | | Results for this | | GENOTYPING | e | | | procedure are in the | | | | | | results section. | + +--------+ + + + | HEPATITIS C | Routin | 05/03/2017 | | Results for this | | RNA,QUANTITATIVE,PCR | e | | | procedure are in the | | | | | | results section. | + +--------+ + + + | CBC WITH | Routin | 05/03/2017 | | Results for this | | DIFFERENTIAL | e | | | procedure are in the | | | | | | results section. | + +--------+ + + + | HEPATIC FUNCTION | Routin | 05/03/2017 | | Results for this | | PANEL | e | | | procedure are in the | | | | | | results section. | + +--------+ + + + | EXTERNAL LAB: FECAL | Routin | 11/17/2016 | | Results for this | | IMMUNOCHEMICAL TEST | e | | | procedure are in the | | (FIT) | | | | results section. | + +--------+ + + + documented in this encounter Results CBC with Differential (05/03/2017) + +-------+ + + + | Component | Value | Ref Range | Performed | Pathologist | | | | | At | Signature | + +-------+ + + + | MCH | 31.9 | 26.0 - 33.0 pg | | | + +-------+ + + + | MCHC | 34.6 | 31.0 - 37.0 % | | | + +-------+ + + + | Basophils % | 1.4 | 0 - 2 | | | + +-------+ + + + + + | Specimen | + + | Blood | + + External Lab: CBC (05/03/2017) + +---------+ + + + | Component | Value | Ref Range | Performed | Pathologist | | | | | At | Signature | + +---------+ + + + | WBC, | 8.7 | 3.8 - 11 | EXTERNAL | | | External | | | LAB | | + +---------+ + + + | HGB, | 14.6 | 13.2 - 17 | EXTERNAL | | | External | | | LAB | | + +---------+ + + + | HCT, | 42.1 | 39 - 50 | EXTERNAL | | | External | | | LAB | | + +---------+ + + + | PLT, | 282 | 150 - 400 | EXTERNAL | | | External | | | LAB | | + +---------+ + + + | Neutrophils | 74.8 | 40 - 75 | EXTERNAL | | | %, | | | LAB | | | External | | | | | + +---------+ + + + | Lymphocytes | 17.2 | 15 - 48 | EXTERNAL | | | %, | | | LAB | | | External | | | | | + +---------+ + + + | Monocytes | 5.8 | 0 - 12 | EXTERNAL | | | %, External | | | LAB | | + +---------+ + + + | Eosinophils | 0.8 | 0 - 7 | EXTERNAL | | | %, | | | LAB | | | External | | | | | + +---------+ + + + | Neutrophils | 6.5 | 1.9 - 7.4 | EXTERNAL | | | , Absolute, | | | LAB | | | External | | | | | + +---------+ + + + | Lymphocytes | 1.5 | 1 - 3.9 | EXTERNAL | | | , Absolute, | | | LAB | | | External | | | | | + +---------+ + + + | Monocytes, | 0.5 | 0 - 0.8 | EXTERNAL | | | Absolute, | | | LAB | | | External | | | | | + +---------+ + + + | Eosinophils | 0.1 (A) | 0.5 | EXTERNAL | | | , Absolute | | | LAB | | + +---------+ + + + | Basophils, | 0.1 | 0 - 0.1 | EXTERNAL | | | Absolute | | | LAB | | + +---------+ + + + | RBC, | 4.57 | 4.2 - 5.7 | EXTERNAL | | | External | | | LAB | | + +---------+ + + + | MCV, | 92 | 80 - 100 | EXTERNAL | | | External | | | LAB | | + +---------+ + + + | RDW, | 13.1 | 11 - 15.5 | EXTERNAL | | | External | | | LAB | | + +---------+ + + + + +---------+ + + | Performing | Address | City/State/Zipcode | Phone Number | | Organization | | | | + +---------+ + + | EXTERNAL LAB | | | | + +---------+ + + Hepatic Function Panel (05/03/2017) + +-------+ + + + | Component | Value | Ref Range | Performed | Pathologist | | | | | At | Signature | + +-------+ + + + | PROTEIN | 7 | | | | | (CALC) | | | | | + +-------+ + + + | Albumin | 4.2 | g/dL | | | + +-------+ + + + | Bilirubin | 0.3 | mg/dL | | | | Total | | | | | + +-------+ + + + | Bilirubin | <0.2 | 0 - 0.3 | | | | Direct | | | | | + +-------+ + + + | Alkaline | 106 | 40 - 129 U/L | | | | Phosphatase | | | | | + +-------+ + + + | AST | 20 | 0 - 40 U/L | | | + +-------+ + + + | ALT | 23 | 0 - 41 U/L | | | + +-------+ + + + + + | Specimen | + + | Blood | + + Hepatitis C Genotyping (05/03/2017) + +-------+ + + + | Component | Value | Ref Range | Performed | Pathologist | | | | | At | Signature | + +-------+ + + + | HCV | 1a | | | | | Genotype | | | | | + +-------+ + + + + + | Specimen | + + | Blood | + + Hepatitis C RNA, quantitative, PCR (05/03/2017) + + + + + + | Component | Value | Ref Range | Performed | Pathologist | | | | | At | Signature | + + + + + + | HCV | 6.6 | | | | | Quantitativ | | | | | | e Log | | | | | + + + + + + | HCV | 4,224,825 | | | | | Quantitativ | | | | | | e | | | | | + + + + + + + + | Specimen | + + | Blood | + + EXTERNAL LAB: FECAL IMMUNOCHEMICAL TEST (FIT) (11/17/2016) + + + + + + | Component | Value | Ref Range | Performed | Pathologist | | | | | At | Signature | + + + + + + | FECAL OCC | Negative | | EXTERNAL | | | BLD IMMUNO | | | LAB | | + + + + + + + + | Specimen | + + | Stool | + + + +---------+ + + | Performing | Address | City/State/Zipcode | Phone Number | | Organization | | | | + +---------+ + + | EXTERNAL LAB | | | | + +---------+ + + documented in this encounter Visit Diagnoses Not on filedocumented in this encounter"
--- OUTSIDE RECORDS SUMMARY | ~2019-07-25 | XMS | Encounter Summary ---
Demographics + + + | Address | [address] | | | [place] [address] | + + + | Home Phone | | + + + | Preferred Language | Unknown | + + + | Marital Status | Single | + + + | Rastafarian Affiliation | Unknown | + + + | Race | Unknown | + + + | Ethnic Group | Unknown | + + + Author + + + | Author | [facility] | | | and [place] | + + + | Organization | [facility] | | | [...] Team Providers + +------+ + | Care Paper Reeler Name | Role | Phone | + [...] | | | | | without | BUILDING INSPECTOR [address] | | | | | hepatic coma | [place], [place] | [place], | | | | | (HCC) | [address] [place] | [place] [address] | | | | | | [place], [place] | Phone: | | | | | | [address] | [phone] | | | | | | Phone: | Fax: | | | | | | [phone] | [phone] | | | | | | Fax: | | | | | | | [phone] | | +--------+--------+ + + + + [...] | [address] [place] | [place], [place] [address] | (HCC) (Primary Dx) | | | | [address] [place], [place] | [place], [place] | | | | | [address] | [address] | | | | | [phone] | | | +--------+ + + + [...]
--- OUTSIDE RECORDS SUMMARY | ~2019-07-25 | XMS | Encounter Summary ---
Demographics + + + | Address | [address] | | | [place] [address] | + + + | Home Phone | | + + + | Preferred Language | Unknown | + + + | Marital Status | Single | + + + | Uatsdin Affiliation | Unknown | + + + | Race | Unknown | + + + | Ethnic Group | Unknown | + + + Author + + + | Author | [facility] | | | and [place] | + + + | Organization | [facility] | | | [...] Team Providers + +------+ + | Care Arc Furnace Operator Name | Role | Phone | + +------+ + | Lore Park PA-C | PCP | | + +------+ + Encounter Details +--------+ + + + + | Date | Type | Department | Care Team | Description | +--------+ + + + + | 06/01/ | Abstract | [facility] [place] | [facility], | | | 2017 | | GASTROENTEROLOGY | [facility] [address] | | | | | [address] [place] | [place], [place] [address] | | | | | [address] [place], [place] | [place] | | | | | [address] | [id number] | | | | | [phone] | | | +--------+ + + + [...]
--- OUTSIDE RECORDS SUMMARY | ~2019-07-25 | XMS | Encounter Summary ---
Demographics + + + | Address | [address] | | | [place] [address] | + + + | Home Phone | | + + + | Preferred Language | Unknown | + + + | Marital Status | Single | + + + | Zoroastrianism Affiliation | Unknown | + + + | Race | Unknown | + + + | Ethnic Group | Unknown | + + + Author + + + | Author | [facility] | | | and [place] | + + + | Organization | [facility] | | [...] Team Providers + +------+ + | Care Museum Director Name | Role | Phone | + [...] + + | 08/14/ | Documentati | [facility] | Yinka armijo Oca, | Referral ([place]) | | 2018 | on | PHARMACY SPECIALTY | [facility] | | | | | [place] | Tech | | | | | [facility] | | | | | | [place], [place] | | | | | | [address] | | | | | | [phone] | | | +--------+ + + + [...] this encounter Progress Notes Lewis Claudio Oca, Corn Cutter - 08/14/2017 1:16 PM PST The patient's insurance requires us to transfer the Mavyret prescription to their contracte d specialty pharmacy: [facility]. We have forwarded the prescription and all documentation we rec eived to this specialty pharmacy. Please contact them at [phone] with any questions. Electronically signed by: Sabra Pacheco [facility] Tech 08/14/2017 13:16 Specialty Pharm[address] [place] [address] (Toll Free: ) Website d ocumented in this encounter Plan of Treatment Not on filedocumented as of this encounter Visit Diagnoses Not on filedocumented in this encounter"
--- OUTSIDE RECORDS SUMMARY | ~2019-07-25 | XMS | Clinical Summary ---
Demographics + + + | Address | [address] | | | [place] [address] | + + + | Home Phone | | + + + | Preferred Language | Unknown | + + + | Marital Status | Single | + + + | Uatsdin Affiliation | Unknown | + + + | Race | Unknown | + + + | Ethnic Group | Unknown | + + + Author + + + | Author | [facility] | | | and [place] | + + + | Organization | [facility] | | [...] Team Providers + +------+ + | Care Senior Net Web Developer Name | Role | Phone | + [...] | [employer] | [employer] | [id number] | 05/22/ | [phone] | | Medica | | MEDICAID HMO [...] Person | Self | [birth year] | [address] | | | al/Fam | | 1959 | [phone] | [place] [address] | | | lisset | | | 1 (Home) | | + +--------+ +--------+ + + Advance Directives + + + + + | Type | Date Recorded | Patient | Explanation | | | | Orthodontist Small Business Owner | | + + + + + | Power of | | | | | Cable Supervisor | | | | + + + + + | Advance | | | | | Directive | | | | + + + + +
--- OUTSIDE RECORDS SUMMARY | ~2019-07-25 | XMS | Encounter Summary ---
Demographics + + + | Address | [address] | | | [place] [address] | + + + | Home Phone | | + + + | Preferred Language | Unknown | + + + | Marital Status | Single | + + + | Episcopalian Affiliation | Unknown | + + + | Race | Unknown | + + + | Ethnic Group | Unknown | + + + Author + + + | Author | [facility] | | | and [place] | + + + | Organization | [facility] | | | and [...] Team Providers + +------+ + | Care Precision Mechanical Instrument Maker Name | Role | Phone | + [...] | Telephone | [facility] [place] | [facility], | LABS; Imaging Only | | 2017 | | GASTROENTEROLOGY | Shea[address] ledesma [address] | (ultrasound) | | | | [address] [place] | [place], [place] [address] | | | | | [address] [place], [place] | [place], [place] | | | | | [address] | [address] | | | | | [phone] | | | +--------+ + + + [...]
--- OUTSIDE RECORDS SUMMARY | ~2019-07-25 | XMS | Encounter Summary ---
Demographics + + + | Address | [address] | | | [place] [address] | + + + | Home Phone | | + + + | Preferred Language | Unknown | + + + | Marital Status | Single | + + + | Temple Affiliation | Unknown | + + + [...] Team Providers + +------+ + | Care Dried Yeast Supervisor Name | Role | Phone | + [...] + | 09/10/ | Telephone | [facility] | [place], | Medication Prior | | 2018 | | MEDICINE [address] | Lore Hardy PA-C | Authorization | | | | Luiz Schneider | [address] | ([address]) | | | | [place] [address] | [place], [place] [address] | | | | | [phone] | [phone] | | | | | | | [...]
--- OUTSIDE RECORDS SUMMARY | ~2019-07-25 | XMS | Encounter Summary ---
Demographics + + + | Address | [address] | | | [place] [address] | + + + | Home Phone | | + + + | Preferred Language | Unknown | + + + | Marital Status | Single | + + + | Taoism Affiliation | Unknown | + + + | Race | Unknown | + + + | Ethnic Group | Unknown | + + + Author + + + | Author | [facility] | | | and [place] | + + + | Organization | [facility] | | [...] Team Providers + +------+ + | Care Diesel Plant Operator Name | Role | Phone | + +------+ + | Lore [place] PA-C | PCP | | + +------+ + Encounter Details +--------+ + + + + | Date | Type | Department | Care Team | Description | +--------+ + + + + | 07/31/ | Documentati | [facility] [place] | [facility], | | | 2018 | on | GASTROENTEROLOGY | MAR Valdivia [address] | | | | | [address] [place] | [place], [place] [address] | | | | | [address] [place], [place] | [place] | | | | | [address] | [address] | | | | | [phone] | | | +--------+ + + + [...]
--- OUTSIDE RECORDS SUMMARY | ~2019-07-25 | XMS | Encounter Summary ---
Demographics + + + | Address | [address] | | | [place] [address] | + + + | Home Phone | | + + + | Preferred Language | Unknown | + + + | Marital Status | Single | + + + | Alevism Affiliation | Unknown | + + + | Race | Unknown | + + + | Ethnic Group | Unknown | + + + Author + + + | Author | [facility] | | | and [place] | + + + | Organization | [facility] | | [...] Team Providers + +------+ + | Care Station Helper Name | Role | Phone | + [...] hepatitis C | [place], | [address] | | | | | without | [employer] [address] | [place], | | | | | hepatic coma | [place] | [place] | | | | | (HCC) | [address] [place] | [address] | | | | | Dementia | [place], [place] | Phone: | | | | | associated | [address] | [phone] | | | | | with | Phone: | Fax: | | | | | alcoholism | [phone] | [phone] | | | | | without | Fax: | | | | | | behavioral | [phone] | | | | | | disturbance | | | | | | | ([facility]) | | | | | | | [...] | | | | | Procedures | [place], | [place] [address] | | | | | Office Visit | [place] [address] | Phone: | | | | | | Phone: | [phone] | | | | | | [phone] | Fax: | | | | | | Fax: | [phone] | | | | | | [phone] | | +--------+--------+ + + + + Encounter Details +--------+---------+ + + + | Date | Type | Department | Care Team | Description | +--------+---------+ + + + | 06/05/ | Office | [facility] [place] | [facility], | Chronic hepatitis C | | 2016 | Visit | GASTROENTEROLOGY | MAR [place] [address] | without hepatic coma | | | | [address] [place] | [place], [place] [address] | (HCC) (Primary Dx); | | | | [address] [place], [place] | [place], [place] | Dementia associated | | | | [address] | [address] | with alcoholism | | | | [phone] | | without behavioral | | | [...] or other personal items. Date Last Reviewed: 01/28/201619991321-8942 [employer]. [address] [place] [address], [place] [id number]. All righ ts reserved. This information is not intended as a substitute for professional medical care. Always follow your healthcare professional's instructions. documented in this encounter Progress Notes Shea Pompa ARNP - 06/05/2017 8:30 AM PSTFormatting of this note might be differe nt from the original. PATIENT NAME: Lewis Galevz : 1960: AGE: 57 y.o. REFERRED BY: [...] 10 years. He was released to a detention. When detention closed, he was placed and independent housing with a regular care gi asmita. He and caregiver both report that he has done well with this arrangement. He is compl iant with all current medications. He was initially diagnosed with HCV over 12 years ago when he was homeless in [place]. Like ly cause of infection of HCV [...] Log 05/03/2017 6.6 Final HCV Quantitative 05/03/2017 [id number] Final HCV Genotype 05/03/2017 1a Final PROTEIN [...] hepatic coma (HCC) Alpha Fetoprotein, Tumor Marker [id number], Total TOREY Screen, Qual CBC with Differential [...] pathology present. Labs to be sent to [facility]. Ordered abdominal ultrasound. Will call to help get scheduled once it is approved by [facility]. Ultrasound to be done at [facility] in [place]. Vaccination: If it has not been done, [...] 10/03/2017 | + +---------+--------+ + + | [id number]-[id number], | Lab | Routin | Chronic hepatitis [...]
--- OUTSIDE RECORDS SUMMARY | 2019-07-25 18:26 | XMS ---
PreManage Notification: HEIDI CLAIRE Security Communications Superintendent Events No recent Security Events currently on file CRITERIA MET - 6 ED Visits in 6 Months CARE PROVIDERS BERT [facility] Current PHONE: [phone] JUSTICE BAE Primary [facility] PHONE: Unknown Khadra has no Care Guidelines for this patient. Brenda VISIT COUNT (12 MO.) 5 [facility] [address] Heidi Del Valle TOTAL 7 NOTE: Visits indicate total known visits. ED/UCC VISIT TRACKING (12 MO.) 07/25/2019 18:24 [facility] [place] TYPE: Emergency COMPLAINT: - INTOXICATION 05/25/2019 14:27 [facility] [employer] [facility] [place] TYPE: Emergency DIAGNOSES: - DIMENTIA/PAIN - Alcohol abuse, uncomplicated 05/10/2019 12:11 [facility] [place] TYPE: Emergency DIAGNOSES: - SWOLLEN FACE - Alcohol dependence, uncomplicated - Fracture of nasal bones, init encntr for closed fracture - Unsp injury of left shoulder and upper arm, init encntr 04/15/2019 17:26 [facility] [place] TYPE: Emergency DIAGNOSES: - intoxication - Alcohol use, unspecified with intoxication, uncomplicated 04/05/2019 09:57 [facility] [place] TYPE: Emergency DIAGNOSES: - Alcohol dependence, uncomplicated - INTOXICATION 02/08/2019 23:29 [facility] [place] TYPE: Emergency COMPLAINT: - FALL DIAGNOSES: - Laceration w/o foreign body of oth part of head, init encntr - Abnormal findings on dx imaging of heart and cor circ - Fall same lev from slip/trip w strike agnst oth object, init - Alcohol abuse with intoxication, unspecified - Nicotine dependence, unspecified, uncomplicated 01/09/2019 22:16 [facility] [place] TYPE: Emergency DIAGNOSES: - Alcohol use, unspecified with intoxication, uncomplicated - intoxicated INPATIENT VISIT TRACKING (12 MO.) No inpatient visits to display in this time frame [email or web address]
== END 2019-07-26 07:50 | disposition home or self-care (01) ==
LOC: ED 18:22
DX: F10.129 Alcohol abuse with intoxication, unspecified (principal)
CPT/HCPCS: 99284

== ENCOUNTER 2020-06-25 12:31 | Observation (INO) | payer OTHER ==
[~2020-06-25] VITALS: Ht 157.5 cm; Wt 54.7 kg
--- OUTSIDE RECORDS SUMMARY | 2020-06-25 12:34 | XMS ---
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 If crisis services are needed please call: Justice [phone] Alicja/Kenneth Lewis [phone] Crisis Line [phone] Care History Medical/Surgical 07/29/2019 [facility] - PLEASE CONTACT [place] [facility]- IF PATIENT ACCEPTS SERVICES- [phone]. - [facility] CAN PROVIDE PATIENT WITH EMERGENCY DETAIL DRIVER AND HELP WITH COMMUNITY RESOURCES. 07/28/2019 [facility] \T\middot;\T\nbsp; PATIENT- [facility] ELIGIBLE \T\middot;\T\nbsp; PLEASE REFER PATIENT TO [facility] FOR NON EMERGENT MEDICAL NEEDS. \T\middot;\ T\nbsp; [facility] CAN SEE PATIENTS SAME DAY FOR APTS IF PATIENT CALLS FIRST THING IN THE MORNING. E.D. VISIT COUNT (12 MO.) 6 [facility] 2 [facility]. TOTAL 8 NOTE: Visits indicate total known visits. ED/UCC VISIT TRACKING (12 MO.) 06/25/2020 12:33 [facility] [place] TYPE: Emergency COMPLAINT: - SOB 06/16/2020 00:52 [facility] [place] TYPE: Emergency DIAGNOSES: - SHORTNESS OF BREATH 05/21/2020 08:28 [facility] [place] TYPE: Emergency DIAGNOSES: - sob - Acute pulmonary edema - Heart failure, unspecified 11/27/2019 16:47 [facility] [place] TYPE: Emergency DIAGNOSES: - Alcohol use, unspecified with intoxication, uncomplicated - POSITIVE ETOH 10/03/2019 21:41 [facility] [place] TYPE: Emergency DIAGNOSES: - Low back pain - BACK PAIN 09/17/2019 19:38 [facility] [place] TYPE: Emergency DIAGNOSES: - MENTAL HEALTH 08/26/2019 11:38 [facility] [place] TYPE: Emergency DIAGNOSES: - MENTAL HEALTH - Alcohol dependence, uncomplicated 07/25/2019 18:24 [facility] [place] TYPE: Emergency COMPLAINT: - INTOXICATION DIAGNOSES: - Alcohol abuse, uncomplicated - Alcohol abuse with intoxication, unspecified INPATIENT VISIT TRACKING (12 MO.) 06/16/2020 00:52 [facility] TYPE[facility] Medical [facility] DIAGNOSES: - Heart failure, unspecified - Acute pulmonary edema 05/21/2020 08:28 [facility] [place] TYPE: Medical Surgical DIAGNOSES: - Heart failure, unspecified - Acute pulmonary edema [email or web address]
[2020-06-25] MEDS ORDERED: CARVEDILOL6.25 MG PO (12:50)
[2020-06-25] MEDS ORDERED: FUROSEMIDE20 MG PO (12:50)
[2020-06-25] MEDS ORDERED: LISINOPRIL2.5 MG PO (12:50)
--- NOTE | 2020-06-25 13:54 | EKG ---
[facility] [address] [place], [place] [address] Signed Normal sinus rhythm Septal infarct , age undetermined Abnormal ECG No previous ECGs available Confirmed by ZOYA MCCORMACK MD ([id number]) on 06/25/2020 1:54:00 PM Electronically Signed By: ZOYA MCCORMACK MD 06/25/20 1354 PATIENT NAME: HEIDI CLAIRE Electrocardiogram DATE OF : 58 PHYSICIAN: ZOYA MCCORMACK MD REPORT #: [id number] REPORT IS CONFIDENTIAL AND NOT TO BE RELEASED WITHOUT AUTHORIZATION
--- NOTE | 2020-06-25 16:20 | NUR ---
REPORT RECEIVED FROM JAIRON WISEMAN. AWAITING ROOM TO BE CLEANED FOR PT TRANSFER.
--- NOTE | 2020-06-25 16:30 | NUR ---
ER CALLED AND UPDATED THAT PTS ROOM IS READY FOR PT TRANSFER. PT ON THEIR WAY.
--- NOTE | 2020-06-25 16:40 | NUR ---
PT ARRIVED FROM ER. PT DRESSED IN GOWN. RESTRAINTS FROM [facility] REMAIN IN PLACE. PTS UNDERWEAR NOTED TO BE WET. PT DENIES INCONTINANCE. OFFICER MEHTA AT BEDSIDE WITH THIS RN AND PT. CRACKS NOTED IN LEFT LOWER LOBE OF LUNG AND RALES NOTED ON RIGHT SIDE. PTS CONDITION EXPLAINTED TO PT. PT VERBALIZES UNDERSTANDING. FLUID RESTRICITON EXPLAINED TO PT, PT VERBALIZES UNDERSTANDING. IV SALINE LOCKED. VITALS TAKEN. STANDING WEIGHT RECORDED. DINNER ORDERED FOR PT. PT TOLERATING ROOM AIR WITH O2 SATURATIONS AT 96%. MINOR INCREASED WORK OF BREATHING NOTED WITH SOME ACCESSORY MUSCLE USE. PT HAS MOIST COUGH. PT RESTING IN BED. NO ADDITIONAL REQUESTS OR COMPLAINTS. BED RAILS UP. CALL LIGHT WITHIN REACH. OFFICER AT BEDSIDE.
--- NOTE | 2020-06-25 17:48 | NUR ---
PT ARRIVED FROM ER TODAY, ADMITTED FOR CHF EXACERBATION. PT IN CUSTODY FROM ASSISTED, OFFICER AT BEDSIDE, ASSISTED RESTRAINTS IN PLACE. PT TOLERATING 2 GM SODIUM DIET AND 1800ML FLUID RESTRICTION WELL. MAINTAINING O2 SATURATIONS ABOVE 90% ON ROOM AIR AT THIS TIME. CRACKELS/RALES NOTED. IV LASIX GIVEN. CARDIAC NURSE CONSULTATION PLACED. PT VOIDING QUANTITY SUFFICIENT. USES CALL LIGHT APPROPRIATLY.
--- NOTE | 2020-06-25 18:22 | NUR ---
DINNER ARRIVED. MEDICATION DUE. THIS RN TO ROOM. PT WATCHING TV. OFFICER JANINE REMAINS AT BEDSIDE. PT POSITIONED WITH HEAD OF BED ELEVATED TO 60 DEGREES FOR DINNER. IV LASIX GIVEN. PT CONTINUES TO TOLERATE ROOM AIR WITH O2 SATURATIONS AT 97% ON ROOM AIR. RIGHT ARM RESTRATIN REMOVED BY OFFICER JANINE FOR PT TO EAT DINNER. PURPOSE OF MEDICATION EXPLAINED TO PT. PT VERBALIEZS UNDERSTANDING. URINAL PROVIDED. NO ADDITIONAL REQUESTS OR COMPLAINTS. CALL LIGHT MARTIN ROBLES. OFFICER AT BEDSIDE. BED RAILS UP.
--- NOTE | 2020-06-25 20:45 | NUR ---
pt USED CALL LIGHT TO ASK FOR TYENOL STATING "IT WAS DUE AN HOUR AGO, MY PAIN IS AT 10/10". THIS MEDICAL ASSISTANT PRN WENT INTO THE ROOM AND pt WASNT GRIMACING, BUT WAS TOLD RN TO BE NOTIFIED.
--- NOTE | 2020-06-25 21:15 | NUR ---
PATIENT IN BED WITH STANDARD LAW ENFORCEMENT RESTRAINTS, OFFICER AT BEDSIDE, PATIENT GOT TYLENOL FOR BRASHER 10/, AND CEPACOL ALYSIA. FOR COUGH. PATIENT HAS HIS LAST 300MLS OF WATER FOR THE NIGHT AND IS TRYING TO GO TO SLEEP NOW. CALLLIGHT IN REACH.
--- NOTE | 2020-06-25 23:28 | NUR ---
PATIENT RESTING QUIETLY IN HIS RIGHT SIDE, CALL LIGHT IN REACH, EYES CLOSED, RESPIRATIONS REGULAR AND EVEN, AND OFFICER AT BEDSIDE.
--- NOTE | 2020-06-26 02:05 | NUR ---
PATIENT RESTING QUIETLY ON LEFT SIDE, IN STANDARD LAW ENFORCEMENT RESTRAINTS, OFFICER AT BEDSIDE, VS ARE STABLE, AND I HAD TO AWAKEN PATIENT AND HE HAS NO MORE C/O PAIN. CALL LIGHT IN REACH.
--- NOTE | 2020-06-26 03:56 | NUR ---
PATIENT RESTING BUT AWAKE, ASKING FOR MORE FLUIDS, INFORMED HIM, I COULD START FLUIDS AGAIN AT 6AM. ÁNGEL'S DEPUTY STILL AT THE BEDSIDE, PATIENT REMAINS IN STANDARD RESTRAINTS FROM THE INTERMEDIATE. PATIENT GOING TO GO BACK TO SLEEP. CALL LIGHT IN REACH.
--- NOTE | 2020-06-26 05:28 | NUR ---
PATIENT HAD A HEADACHE AT THE BEGINING OF THE SHIFT RELIEVED WITH TYLENOL AND HAS OTHERWISE SEEMED TO HAVE RESTED WELL MOST OF THE NIGHT IN STANDARD STAFF RESPIRATORY THERAPIST'S DEPARTMENT RESTRAINTS, USING THE URINAL AT BEDSIDE, AND STICKING TO HIS FLUID RESTRICTION. CALL LIGHT IS IN REACH AND DEPUTY REMAINS AT BEDSIDE. CALL LIGHT IN REACH.
--- NOTE | 2020-06-26 07:10 | NUR ---
In room for shift report from Fausto DE LA O. Report included: Pt had an uneventful evening. Pt had some pain in the early evening, tx with PRN tylenol and slept well the rest of the night. Pt has officer at the bedside. Pt currently in bed, table and call light within reach. Pt alert and pleasant upon greeting.
--- NOTE | 2020-06-26 08:15 | NUR ---
PATIENT AWAKE IN BED, OFFICER IN ROOM. PATIENT IN RESTRAINTS, SO THIS AERIAL GUNNER SUPERINTENDENT WASHED HIS HANDS AND FACE. PATIENT REQUESTS SHOWER TODAY, STATES IT'S BEEN 5 DAYS SINCE LAST SHOWER. PATIENT GIVEN EMESIS BAG FOR SPUTUM. NO OTHER NEEDS AT THIS TIME
--- NOTE | 2020-06-26 08:15 | NUR ---
Pt awake, alert and ortiented x4. Pt denies sob and pain at this time. No distress noted. Breakfast provided at this time. One systems support officer at bedside. Personal supplies and call light within reach. Pat has restraints on at this time to all four extremities.
--- NOTE | 2020-06-26 08:20 | NUR ---
To room for rounding. Pt lying in bed, table and call light within reach. Denies pain and nausea at this time. Pt has no needs at this time. Pt has officer at bedside.
--- NOTE | 2020-06-26 10:11 | NUR ---
PATIENT AWAKE IN BED, OFFICER IN ROOM. VITALS AND I&OS CHARTED, NO OTHER NEEDS AT THIS TIME
--- NOTE | 2020-06-26 10:36 | NUR ---
In room for rounding. Pt had a headache that he reports was increasing in pain. PRN tylenol given as ordered. Pt in bed, table and call light within reach. Officer at bedside.
--- NOTE | 2020-06-26 11:50 | NUR ---
In room for rounding. Pt denies pain and nausea. Pt in bed, table and call light within reach. Officer at the bedside.
--- NOTE | 2020-06-26 12:00 | NUR ---
PATIENT SET UP FOR SHOWER. OFFICER IN ROOM. LINENS CHANGED.
--- NOTE | 2020-06-26 14:27 | NUR ---
Spoke to RN at recieving facility. Pt report given. All questions answered.
--- NOTE | 2020-06-28 14:30 | NUR ---
Heart Failure Nurse follow up note I received a request from Dr Pal to consult on a patient that was discharged over the holiday weekend. Per [employer] there is no contact numbers. There is no PCP or metal organ pipe maker on record. I sent patient letter inviting him to conact this service.
== END 2020-06-26 14:00 | disposition home or self-care (01) ==
LOC: ED 12:31 → MS 12:34
PROVIDERS: ADMIT Student in an Organized Health Care Education/Training Program; ATTEND Student in an Organized Health Care Education/Training Program
DX: I50.23 Acute on chronic systolic (congestive) heart failure (principal); J96.01 Acute respiratory failure with hypoxia; F10.10 Alcohol abuse, uncomplicated; Z79.899 Other long term (current) drug therapy; Z20.828 Contact with and (suspected) exposure to other viral communicable diseases
CPT/HCPCS: 36415; 71045; 80048; 80053; 81001; 83605; 83735; 83880; 84484; 85025; 87040; 93005; 93010; 96374; 96376; 99285-25; C9803; G0378; J1940; U0003

== ENCOUNTER 2020-06-28 10:31 | Emergency (ER) | payer OTHER ==
[~2020-06-28] VITALS: Ht 157.5 cm; Wt 65.8 kg
[~2020-06-28 10:31] MED LIST: CARVEDILOL6.25 MG PO; FUROSEMIDE20 MG PO; LISINOPRIL2.5 MG PO
--- OUTSIDE RECORDS SUMMARY | 2020-06-28 10:34 | XMS ---
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 If crisis services are needed please call: Justice [phone] Alicja/Kenneth Lewis [phone] Crisis Line [phone] Care History Medical/Surgical 07/29/2019 [facility] - PLEASE CONTACT [place] [facility]- IF PATIENT ACCEPTS SERVICES- . - [facility] CAN PROVIDE PATIENT WITH LOGISTICS TEAM LEAD AND HELP WITH COMMUNITY RESOURCES. 07/28/2019 [facility] \T\middot;\T\nbsp; PATIENT- [facility] ELIGIBLE \T\middot;\T\nbsp; PLEASE REFER PATIENT TO [facility] FOR NON EMERGENT MEDICAL NEEDS. \T\middot;\ T\nbsp; [facility] CAN SEE PATIENTS SAME DAY FOR APTS IF PATIENT CALLS FIRST THING IN THE MORNING. E.D. VISIT COUNT (12 MO.) 6 [facility] 3 [facility]. TOTAL 9 NOTE: Visits indicate total known visits. ED/UCC VISIT TRACKING (12 MO.) 06/28/2020 10:32 [facility] [place] TYPE: Emergency COMPLAINT: - MEDICATION REFILL 06/25/2020 12:33 [facility] [place] TYPE: Emergency COMPLAINT: - SOB 06/16/2020 00:52 [facility] [place] TYPE: Emergency DIAGNOSES: - SHORTNESS OF BREATH 05/21/2020 08:28 [facility] [place] TYPE: Emergency DIAGNOSES: - sob - Acute pulmonary edema - Heart failure, unspecified 11/27/2019 16:47 [facility] [place] TYPE: Emergency DIAGNOSES: - Alcohol use, unspecified with intoxication, uncomplicated - POSITIVE ETOH 10/03/2019 21:41 [facility] [place] TYPE: Emergency DIAGNOSES: - Low back pain - BACK PAIN 09/17/2019 19:38 [facility] [place] TYPE: Emergency DIAGNOSES: - MENTAL HEALTH 08/26/2019 11:38 [facility] [place] TYPE: Emergency DIAGNOSES: - SI MENTAL HEALTH - Alcohol dependence, uncomplicated 07/25/2019 18:24 [facility] [place] TYPE: Emergency COMPLAINT: - INTOXICATION DIAGNOSES: - Alcohol abuse, uncomplicated - Alcohol abuse with intoxication, unspecified INPATIENT VISIT TRACKING (12 MO.) 06/25/2020 12:34 [facility] [place] TYPE: Observation COMPLAINT: - CHF EXACERBATION 06/16/2020 00:52 [facility] [place] TYPE: Medical Surgical DIAGNOSES: - Heart failure, unspecified - Acute pulmonary edema 05/21/2020 08:28 [facility] [place] TYPE: Medical Surgical DIAGNOSES: - Heart failure, unspecified - Acute pulmonary edema [email or web address]
== END 2020-06-28 11:04 | disposition home or self-care (01) ==
LOC: ED 10:31
DX: Z76.0 Encounter for issue of repeat prescription (principal)